=== PATIENT | male | born 2000 | race Caucasian/White ===

== ENCOUNTER 2021-11-17 13:57 | Emergency (ER) | payer OTHER, BC, MEDICAID, SELFPAY ==
--- NOTE | ~2021-11-17 | XR_ITS ---
X EXAM: XR hand LT min 3V DATE: 11/17/2021 15:11 HISTORY: left 3rd and 4th fingers smashed in tractor parts . COMPARISON: None available. FINDINGS: Normal mineralization. No fracture or dislocation. No lytic or blastic lesion. Joint space s are maintained. No erosion or periosteal change. Soft tissues within normal limits. IMPRESSION: No acute osseous finding in the left hand. Reviewed, dictated and finalized at location K.
[2021-11-17 14:28] VITALS: BP 113/65; PULSE 64; RESP 18; TEMP 37.4; O2SAT 98
--- NOTE | 2021-11-17 15:21 | ED.GENADULT ---
HPI - General Adult General Chief complaint: Extremity Injury, Upper Stated complaint: lt middle and ring finger injury Source: patient Mode of arrival: ambulatory Limitations: no limitations History of Present Illness HPI narrative: Patient presents for evaluation of left hand injury. He states two days ago he got his hand caught between a bucket and an armrest of a tractor. Girlfriend indicates that he had such significant pain that he passed out. Patient states that since that time he has had swelling and pain in the third and fourth digits of the hand. He rates his pain 6 out of 10 with palpation but denies pain at rest. He has some associated bruising. No loss of range of motion. No paresthesias. He is right-hand dominant. Date of last tetanus unknown. He is taking ibuprofen with some improvement in his pain thereafter. Related Data Home Medications Medication Instructions Recorded Confirmed No Home Medications 11/17/21 11/17/21 Allergies Allergy/AdvReac Type Severity Reaction Status Date / Time No Known Allergies Allergy Verified 11/17/21 14:44 Review of Systems Review of Systems: CONSTITUTIONAL: Denies fever, chills, or sweats. EYES: Denies visual changes, redness, or discharge. ENT: Denies rhinorrhea, congestion, sore throat, or otalgia. CARDIOVASCULAR: Denies chest pain, palpitations, or edema. RESPIRATORY: Denies cough or dyspnea. GASTROINTESTINAL: Denies abdominal pain, nausea, vomiting, or diarrhea. GENITOURINARY: Denies dysuria or hematuria. SKIN: Reports bruising to 3rd and 4th digits of left hand MUSCULOSKELETAL: Reports pain in 3rd and 4th digits of left hand. NEUROLOGIC: Denies headache, numbness, dizziness, or weakness. PSYCHIATRIC: Denies anxiety or depression. [facility] Past Medical History Medical History (Updated 11/17/21 @ 16:10 by Radhames Lara, WILIAN, ) No pertinent past medical history Surgical History Surgical History No pertinent past surgical history Family History Family History Father Hypothyroid Social History Social History (Updated 11/17/21 @ 15:25 by Radhames Lara, WILIAN, ) Smoking status: Never smoker Alcohol intake: never Substance use: never Gender identity (if verbalized by the patient): Male Sexual Orientation (if Verbalized by the Patient): Straight or Heterosexual Spiritual care concerns: No Exam Narrative: GENERAL: Well-appearing, well-nourished, and in no acute distress. HEAD: Normocephalic, atraumatic. EYES: PERRLA and EOMI. ENT: Nares clear, no rhinorrhea or epistaxis. Mucous membranes moist. Oropharynx without tonsillar hypertrophy exudate or other lesions. Bilateral TMs pearly louis nonbulging NECK: Supple. No adenopathy or masses. No carotid bruits or JVD CHEST: Clear to auscultation. No respiratory distress. No wheezes rales or rhonchi HEART: Regular rate and rhythm. No murmur heard. Normal peripheral pulses. ABDOMEN: Soft, nontender, nondistended, normal active bowel sounds. EXTREMITIES: Normal range of motion. There is trace swelling noted to the third and fourth digits of the left hand.. Tenderness noted to the PIP joint and middle phalanx of the 4th digit of the left hand. Tenderness noted to the proximal phalanx, PIP and middle phalanx of the third digit of the left hand. SKIN: There is ecchymosis noted to the PIP joints of the third and fourth digits of the left hand NEURO: No focal deficits. Alert and oriented x3. PSYCH: Normal mood and affect. Course Course Emergency Course: This is a 20-year-old male who present with complaints of pain in the third and fourth digit of his left hand after a recent injury. X ray was negative for fracture. Exam consistent with contusions. Provided with finger splints. Advised on RICE therapy. Ibuprofen for pain. Follow up outpatient for further evaluatio
[2021-11-17] MEDS: TETANUS,DIPHTHERIA,AC PERTUSSIS ADULT (0.5 ML) BOOSTRIX IM (15:28)
== END 2021-11-17 16:13 | disposition home or self-care (01) ==
PROVIDERS: Emergency Provider Nurse Practitioner
DX: S60.032A Contusion of left middle finger without damage to nail, initial encounter (principal); S60.042A Contusion of left ring finger without damage to nail, initial encounter; X58.XXXA Exposure to other specified factors, initial encounter; Z23 Encounter for immunization
CPT/HCPCS: 29130 ×2; 73130; 90471; 90715; 99203; G0463